=== PATIENT | male | born 1955 | race African-American/Black ===

== ENCOUNTER 2018-02-05 08:58 | Outpatient (CLI) | payer OTHER ==
[2018-02-05] MEDS ORDERED: Iopamidol 370 76% 100 ML VIAL ONE (12:11)
--- NOTE | 2018-02-05 13:07 | CT ---
PRE AND POSTCONTRAST ENHANCED CT IMAGES ABDOMEN AND PELVIS: HISTORY: History of prostate cancer with a history of prostatectomy. Patient with a possible renal lesion. FINDINGS: Pre- and postcontrast-enhanced CT images of the abdomen and pelvis were obtained. The lung bases are unremarkable. No evidence of free intraperitoneal air is seen. The liver demonstrates hepatic steatosis. The spleen is unremarkable. The gallbladder and pancreas are unremarkable. Adrenal glands unremarkable. There is a cortical cyst diameter measuring approxim ately 13 mm in the upper pole of the right kidney. There is a larger renal cyst in the mid pole of the left kidney measuring 5.6 x 6.3 x 6.3 cm. This a ppears to be a Bosniak type I cyst. A tiny cortical cyst is also seen in the upper pole of the left kidney, diameter measuring approximately 16 mm, also a simple cyst on CT. No evidence of paraaortic lymphadenopathy seen. The prostate has been surgically removed. No evidence of pelvic lymphadenopathy seen. No obvious osseous lesion is seen. Multilevel intervertebral disk degenerative changes seen in the lumbar spine with vacuum disk changes seen in the T12-L1, L1-2, L2-3, L3-4, L4-5 intervertebral disk levels. IMPRESSION: Bilateral renal cysts. POS: KERRIE
--- NOTE | 2018-02-05 14:21 | NM ---
BONE SCAN: HISTORY: Malignant neoplasm of prostate. DOSE: 30 mCi of Technetium 99m MDP. FINDINGS: Anterior and posterior whole body delayed images obtained. Images demonstrate no significant evidence of areas of scintigraphic uptake to suggest metastatic dis ease. No other bony lesions seen. IMPRESSION: No evidence of metastatic disease seen. Bone scan is unremarkable. POS: EARL
== END 2018-02-05 08:59 | disposition home or self-care (01) ==
LOC: CT 08:58
PROVIDERS: ATTEND Urology
DX: C61 Malignant neoplasm of prostate (principal); K76.9 Liver disease, unspecified; R39.198 Other difficulties with micturition; E11.9 Type 2 diabetes mellitus without complications; N28.1 Cyst of kidney, acquired
CPT/HCPCS: 74178; 78306; 80053; 83036; A9503

== ENCOUNTER 2018-02-19 12:16 | Outpatient (CLI) | payer OTHER ==
[2018-02-19 14:09] LABS: Hemoglobin 13.7 g/dL (14.0-18.0); Mean Corpuscular Hemoglobin 33.1 pg (27.0-31.0); Mean Corpuscular Volume 94.5 fl (80.0-94.0); Platelet Count 242 thou/uL (130-400); RBC Distribution Width 10.6 % (11.5-14.5); Red Blood Cell (RBC) Count 4.13 mill/uL (4.70-6.10); White Blood Cell (WBC) Count 3.9 thou/uL (4.8-10.8)
[2018-02-19 14:17] LABS: PTT 32.4 SEC (22.9-36.1); Prothrombin Time 13.5 SEC (12.0-14.7)
[2018-02-19 14:45] LABS: Anion Gap 11 mmol/L (10-20); BUN (Urea Nitrogen) 16 mg/dL (8.4-25.7); Calc. Creatinine Clearance 0 mL/min (70-130); Calcium 10.1 mg/dL (7.8-10.44); Carbon Dioxide 23 mmol/L (23-31); Chloride 108 mmol/L (98-107); Estimated GFR-MDRD 86; Glucose 96 mg/dL (80-115); Sodium 138 mmol/L (136-145)
== END 2018-02-19 12:17 | disposition home or self-care (01) ==
LOC: LABBT 12:16
PROVIDERS: ATTEND Urology
DX: Z01.818 Encounter for other preprocedural examination (principal); N32.0 Bladder-neck obstruction
CPT/HCPCS: 80048; 85027; 85610; 85730; 93005; 93010

== ENCOUNTER 2018-02-23 06:45 | Day surgery (SDC) | payer OTHER ==
[2018-02-19 12:44] VITALS: BMI 28.8
[2018-02-23] MEDS ORDERED: Levofloxacin 500 mg/D5W 100 ml Premix Bag ONE (07:20)
[2018-02-23] MEDS ORDERED: Fentanyl 100 MCG/2 ML VIAL ONE (07:31)
[2018-02-23] MEDS ORDERED: Iothalamate Meglumine 60% 50 ML VIAL FS ONE (07:37)
[2018-02-23] MEDS ORDERED: Ketorolac Tromethamine 30 MG/ML VIAL ONE (08:35)
[2018-02-23] MEDS ORDERED: Oxybutynin 5 MG TAB ONE (08:40)
[2018-02-23] MEDS ORDERED: Phenazopyridine HCl 97.5 MG TABLET ONE (08:41)
--- NOTE | 2018-02-23 09:27 | RAD ---
RETROGRADE PYELOGRAM: A single film from a retrograde study is presented. This shows a catheter which appears to be in the bladder. No contrast was injected. There is what appear to be postop prostatectomy changes. IMPRESSION: No contrast seen injected on the single film presented as a retrograde pyelogram. POS: EARL
--- NOTE | 2018-02-23 10:06 | OP ---
PREOPERATIVE DIAGNOSES: 1. A 62-year-old male status post radical prostatectomy on 03/[address] oCrtez, pathologic T3bN0, Elwood score 4+3, tertiary of 5, status post neoadjuvant radiation therapy. 2. Slow urinary stream secondary to tight bladder neck contracture, pinhole opening on local cystoscopy. POSTOPERATIVE DIAGNOSES: 1. A 62-year-old male status post radical prostatectomy on 03/[address] Cortez, pathologic T3bN0, Elwood score 4+3, tertiary of 5, status post neoadjuvant radiation therapy. 2. Slow urinary stream secondary to tight bladder neck contracture, pinhole opening on local cystoscopy. PROCEDURES: Cystoscopy, transurethral resection of bladder neck contracture, 20 Iranian Mansfield-tip Franks catheter placement over guidewire. SURGEON: Lakeshia Vargas D.O. ANESTHESIA: LMA. COMPLICATIONS: None apparent. SPECIMEN: TUR bladder neck contracture. INTRAOPERATIVE FINDINGS: 1. Subtle earlly bulbar urethral stricture, nonobstructing, not warranting treatment. 2. Very tight bladder neck contracture, dense in nature caliber just enough to accommodate a 0.35 sensor wire, bladder grossly unremarkable. 3. Postoperative changes consistent with urethral vesicle anastomosis with some redundant mucosa. SPECIMEN: TUR bladder neck contracture. DRAINS: A 20-Iranian Councill-tip Franks catheter placement over guidewire. INDICATIONS FOR THE PROCEDURE AND HISTORY: Mr. Hernandez is a pleasant 62-year- old -[place] male, referred to me for continuity of care. The patient was previously followed by Dr. Cortez, underwent radical open prostatectomy, bilateral pelvic lymph node dissection by Dr. Cortez on 03/2017. Final pathology consistent with T3bN0 Elwood score 4+3, tertiary score of 5. The patient presented to my office complaining of slow urinary caliber. I did repeat a staging CT bone scan negative for metastatic disease. The patient underwent adjuvant radiation therapy back in 11/2017. Due to slow urinary caliber, he underwent local cystoscopy demonstrating high degree of bladder neck contracture presents today for exam under anesthesia. Risks and complications of the procedure was reviewed with him in detail including, but not limited to, bleeding, pain, infection, injury to adjacent organs, bladder, urethral injury, sepsis, high likelihood of recurrence of bladder neck contracture was reviewed with patient and in detail and desired to proceed without reservation. DESCRIPTION OF THE PROCEDURE: After an informed consent is signed, the patient is taken to the operating room, placed in a dorsal lithotomy position with the genital area prepped and draped in the usual surgical sterile fashion. A 21- Iranian cystoscope was initially utilized to stage. Upon entering the bulbar urethra, there is subtle bulbar stricture; however, these are wide caliber not warranting treatment. The scope was easily able to be maneuvered to the level of the bladder neck which demonstrated very tight bladder neck contracture. The opening to the bladder neck was somewhat subtle given its small size. I was able to negotiate a 0.35 sensor wire, the opening of the bladder neck was just enough to accommodate a 0.35 sensor wire which I passed into the level of the bladder confirmed on fluoroscopy. A 5 Iranian open-ended catheter was negotiated and even with the 5 Iranian catheter, it was very tight and snugged to pass into the level of the bladder. We were able to negotiate the 5-Iranian open-ended catheter to the level of the bladder and the wire was then switched to a 0.35 Super Stiff wire. A 10 Iranian dual-lumen access sheath was attempted to be passed to passively dilate the bladder neck contracture, however, due to dense nature, I was unable to pass this even with the Super Stiff wire. Therefore, I passed a wire through the rigid 17-Iranian cystoscope. With the wire placed through the cystoscope, I gently passed scope with a guidewire assist into the level of the bladder. It required some manipulation as it was very dense in nature; however, I was able to pass the cystoscope to the level of the bladder under direct visualization. We then passed a 21-Iranian cystoscope which we were able to pass much easier. Then, I did transition to a 26-Iranian resectoscope with a visual obturator. The meatus had to be dilated to 30 Iranian to accommodate the 26-Iranian resectoscope. I subsequently passed to the level of the bladder under direct visualization. Using a prostate gyrus bipolar loop, we performed transurethral resection of bladder neck contracture. The scar tissue was very dense in nature. We resected just enough to release the tight bladder neck contracture and I was able to negotiate the 26-Iranian resectoscope easily back and forth. Minimal cautery was utilized as it can exacerbate recurrent bladder neck contracture accelerated. No active oozing was appreciated. The bladder itself demonstrated no significant trabeculation, bladder stones, or tumors. The UO's were identified well from the bladder neck anastomosis. There was some redundant mucosa at the level of the anastomosis consistent with prior surgery. At this time, I replaced a 0.35 Super Stiff wire to the level of the bladder through the resectoscope and a 20 Iranian Councill-tip catheter was able to be passed without difficulty. He tolerated the procedure well. He is discharged with Jermyn, Cipro, and Colace p.r.n. He will follow up with me on next Friday for catheter removal voiding trial. Given the dense nature of his bladder neck contracture, restaging cystoscopy would be prudent in 3-6 months interval. AGUILAR
[2018-02-23] MEDS ORDERED: Lidocaine 1% PF 5 ML VIAL ONE (14:01)
[2018-02-23] MEDS ORDERED: Dexamethasone 20 MG/5 ML VIAL ONE (14:01)
[2018-02-23] MEDS ORDERED: Ondansetron HCl/PF 4 MG/2 ML Vial ONE (14:01)
[2018-02-23] MEDS ORDERED: PROPOFOL 200 MG/20 ML VIAL ONE (14:01)
== END 2018-02-23 09:58 | disposition home or self-care (01) ==
LOC: SDC 06:45
PROVIDERS: ATTEND Urology
PROC: 0T7D8ZZ Dilation of Urethra, Via Natural or Artificial Opening Endoscopic (ICD-10-PCS; principal; 2018-02-23)
PROC: 0TBC8ZZ Excision of Bladder Neck, Via Natural or Artificial Opening Endoscopic (ICD-10-PCS; principal; 2018-02-23)
DX: N32.0 Bladder-neck obstruction (principal); N35.9 Urethral stricture, unspecified; N52.9 Male erectile dysfunction, unspecified; E11.40 Type 2 diabetes mellitus with diabetic neuropathy, unspecified; M19.90 Unspecified osteoarthritis, unspecified site; I10 Essential (primary) hypertension; E53.8 Deficiency of other specified B group vitamins; Z85.46 Personal history of malignant neoplasm of prostate; Z92.3 Personal history of irradiation; Z79.82 Long term (current) use of aspirin; Z79.84 Long term (current) use of oral hypoglycemic drugs; Z79.899 Other long term (current) drug therapy
CPT/HCPCS: 74420; 88305; 96374; C1758; C1769; J1100; J1885; J1956; J2001; J2405; J2704; J3010; Q9961

== ENCOUNTER 2018-06-03 07:14 | Outpatient (CLI) | payer OTHER ==
[2018-06-03] MEDS ORDERED: Gadobenate Dimeglumine 529 MG/1 ML (20ML VIAL) ONE (08:14)
== END 2018-06-03 07:15 | disposition home or self-care (01) ==
LOC: BICMRI 07:14
PROVIDERS: ATTEND Surgery
DX: M47.26 Other spondylosis with radiculopathy, lumbar region (principal); M54.5 Low back pain; M51.16 Intervertebral disc disorders with radiculopathy, lumbar region; M99.83 Other biomechanical lesions of lumbar region
CPT/HCPCS: 72120; 72158; A9579

== ENCOUNTER 2018-09-01 08:39 | Day surgery (SDC) | payer MEDICARE ==
[2018-08-25 10:18] VITALS: BMI 29.5
[2018-09-01] MEDS ORDERED: CEFAZOLIN 2 GM/50 ML BAG ONE (10:00)
[2018-09-01] MEDS ORDERED: Sodium Chloride 0.9% 10 ML ONE (10:13)
[2018-09-01] MEDS ORDERED: Bacitracin Zinc Ointment 30 gm TUBE ONE (10:13)
[2018-09-01] MEDS ORDERED: Thrombin 5000 UNITS/5 ML VIAL ONE (10:13)
[2018-09-01] MEDS ORDERED: Fentanyl 100 MCG/2 ML VIAL ONE ×5 (11:25→16:17)
[2018-09-01] MEDS ORDERED: Meperidine HCl/PF 25 MG/ML VIAL SLOW IVP PRN (13:48)
[2018-09-01] MEDS ORDERED: Morphine Sulfate 2 MG/ML SYRINGE SLOW IVP PRN (13:48)
[2018-09-01] MEDS ORDERED: HYDROmorphone 2 MG/ML VIAL SLOW IVP PRN (13:48)
[2018-09-01] MEDS ORDERED: Promethazine HCl 25 MG/ML VIAL IM PRN (13:48)
[2018-09-01] MEDS ORDERED: Ondansetron HCl/PF 4 MG/2 ML Vial IVP PRN (13:48)
[2018-09-01] MEDS ORDERED: Promethazine HCl 25 MG/ML VIAL SLOW IVP PRN (13:48)
[2018-09-01] MEDS ORDERED: PACU-Morphine 4MG/ML VIAL SLOW IVP PRN (13:48)
[2018-09-01] MEDS ORDERED: hydrALAZINE 20 MG/ML VIAL ONE (14:06)
[2018-09-01] MEDS ORDERED: Mag-Al 1200 mg/1200 mg/30 ML UDCUP PO PRN (14:33)
[2018-09-01] MEDS ORDERED: Morphine 2 MG/ML SYRINGE SLOW IVP PRN (14:33)
[2018-09-01] MEDS ORDERED: Bisacodyl 10 MG SUPP PR PRN (14:33)
[2018-09-01] MEDS ORDERED: tiZANidine HCl 4 MG TAB PO PRN (14:33)
[2018-09-01] MEDS ORDERED: traMADol HCl 50 MG TAB PO PRN (14:33)
[2018-09-01] MEDS ORDERED: Milk Of Magnesia 30 ML UDCUP PO PRN (14:33)
[2018-09-01] MEDS ORDERED: Fleet Enema 133 ML BOT PR PRN (14:33)
[2018-09-01] MEDS ORDERED: Acetaminophen 325 MG TAB PO PRN (14:33)
[2018-09-01] MEDS ORDERED: CEFAZOLIN/Water 2 GM/20 ML SYRINGE SLOW IVP SCH (14:45)
[2018-09-01] MEDS: Gabapentin 300 MG CAP PO SCH ×2 (17:11→20:07)
[2018-09-01] MEDS: Sodium Chloride 0.9% 1,000 ML IV SCH (17:13)
[2018-09-01] MEDS: HYDROcodone/Acetaminophen 7.5/325 mg Tablet PO PRN (18:14)
[2018-09-01] MEDS: CEFAZOLIN 2 GM/50 ML-DEXTROSE 2 GM in Premix Bag 1 BAG IVPB SCH (18:15)
[2018-09-01] MEDS ORDERED: Morphine 4 MG/ML VIAL SLOW IVP PRN (19:57)
[2018-09-01] MEDS: Lisinopril 10 MG TAB PO SCH (20:07)
[2018-09-02] MEDS: CEFAZOLIN 2 GM/50 ML-DEXTROSE 2 GM in Premix Bag 1 BAG IVPB SCH (02:06)
[2018-09-02] MEDS: HYDROcodone/Acetaminophen 7.5/325 mg Tablet PO PRN (04:30)
[2018-09-02] MEDS: Sodium Chloride 0.9% 1,000 ML IV SCH ×2 (04:38→07:45)
[2018-09-02 08:16] VITALS: BP 109/71
[2018-09-02] MEDS: Gabapentin 300 MG CAP PO SCH (08:16)
[2018-09-02] MEDS: Lisinopril 10 MG TAB PO SCH (08:16)
[2018-09-02 08:39] VITALS: TEMP 98.2
--- NOTE | 2018-09-02 09:49 | PRG ---
DATE OF SERVICE: 09/02/2018 Mr. Hernandez is postoperative day 1 from right L4-L5 hemilaminotomy, foraminotomy, and diskectomy and trans-facet approach to the right L4-L5 segment for decompression of the exiting right L4 root and lateral diskectomy. He is doing well with resolution in his leg pain and improvement even in his dorsiflexion strength. He has met criteria for dismissal. We will arrange for dismissal. We went over both intra and postoperative issues. I am pleased with his outcome at this point. Job ID: [id number]
--- NOTE | 2018-09-02 12:36 | OP ---
DATE OF PROCEDURE: 09/01/2018 OPERATING ROOM: OR 11. BAND SAW OPERATOR CAKE CUTTING: Charles Read PA-C. PREPROCEDURE DIAGNOSES: Right L4 and right L5 radiculopathy with right L4 foraminal stenosis with lateral disk extrusion and osteophyte encroachment with right L4-L5 paracentral disk extrusion and compression traversing right L5 nerve root. POSTPROCEDURE DIAGNOSES: Right L4 and right L5 radiculopathy with right L4 foraminal stenosis with lateral disk extrusion and osteophyte encroachment with right L4-L5 paracentral disk extrusion and compression traversing right L5 nerve root. PROCEDURES PERFORMED: 1. Right L4-L5 hemilaminotomy, foraminotomy with diskectomy. 2. Transfacet approach right L4-L5 for complete decompression of the exiting right L4 nerve root with lateral diskectomy. 3. Use of operative microscope for microdissection. DESCRIPTION OF PROCEDURE: After informed consent was obtained from the patient, the patient was brought to OR 11. Proper patient pause and identification were carried out. He was placed under excellent general endotracheal anesthesia and positioned prone on the OR table. All appropriate points were padded. We identified the midline L4-L5 segment. This region was sterilely cleansed, prepared, and draped. Proper patient pause and identification were carried out. The wound was then opened with a combination of sharp, monopolar, and blunt dissection. The right L4-L5 segment was exposed. Localization film confirmed our area of interest. We then also turned our attention to exposure of the facet complex on the right side at L4-L5 that would facilitate transfacet approach for decompression of the exiting right L4 nerve root and lateral diskectomy. We then performed a right L4-L5 hemilaminotomy, foraminotomy, and identified paracentral disk material that was compressing the traversing right L5 nerve root. This was removed and we achieved excellent decompression of the right L5 nerve root. We then turned our attention to the transfacet approach and transfacet approach was performed and lateral diskectomy was performed to decompress the exiting right L4 nerve root. There was also osteophyte buildup in the foramina as well and this was removed as well. By the conclusion, we had excellent decompression of the exiting right L4 nerve root throughout its course. Copious irrigation occurred throughout as did maximizing hemostasis. The wound was then closed in anatomic layers following sprinkling of vancomycin powder. The patient then emerged from anesthesia. Job ID: [id number]
== END 2018-09-02 10:50 | disposition home or self-care (01) ==
LOC: SDC 08:39 → SURG A 16:46 → SDC 09-02 10:50
PROVIDERS: ATTEND Surgery
PROC: 0SB20ZZ Excision of Lumbar Vertebral Disc, Open Approach (ICD-10-PCS; principal; 2018-09-01)
DX: M51.16 Intervertebral disc disorders with radiculopathy, lumbar region (principal); M48.061 Spinal stenosis, lumbar region without neurogenic claudication; I10 Essential (primary) hypertension; E11.9 Type 2 diabetes mellitus without complications; C61 Malignant neoplasm of prostate; Z79.82 Long term (current) use of aspirin; Z79.84 Long term (current) use of oral hypoglycemic drugs; Z79.899 Other long term (current) drug therapy
CPT/HCPCS: 76001; J0360; J2270; J3010; J3370; J3490

== ENCOUNTER 2019-02-19 11:56 | Outpatient (CLI) | payer MEDICARE ==
[~2019-02-19 11:56] MED LIST: Iopamidol 370 76% 100 ML VIAL ONE
--- NOTE | 2019-02-19 14:42 | ULT ---
CAROTID ULTRASOUND: 02/19/19 HISTORY: CVA. COMPARISON: None. TECHNIQUE: Agutam scale, color flow, Doppler imaging with spectral waveform analysis performed in the carotid and vertebral arteries. FINDINGS: RIGHT CAROTID: No significant atherosclerotic disease. Peak systolic velocity of the common carotid artery is 72.1 c m/s. Peak systolic velocity of the internal carotid artery is 60.3 cm/s. Systolic ICA to CCA ratio is 0.84. LEFT CAROTID: No significant atherosclerotic disease. Peak systolic velocity of the common carotid artery is 74.5 c m/s. Peak systolic velocity of the internal carotid artery is 49.1 cm/s. Systolic ICA to CCA ratio is 0.66. Antegrade flow in both vertebral arteries. IMPRESSION: No sonographic evidence of hemodynamically significant stenosis. POS: OFF
--- NOTE | 2019-02-19 16:04 | CT ---
CT BRAIN WITH AND WITHOUT IV CONTRAST: 02/19/19 HISTORY: CVA, old hemiparesis, prostate cancer, right arm and hand pain and numbness. COMPARISON: None. FINDINGS: There is encephalomalacia changes in the right frontal lobe consistent with an old infarction. No divine dence of acute infarction, hemorrhage, mass, midline shift, or abnormal extra-axial fluid collections are seen. The ventricular size is normal and the basilar cisterns patent. No abnormal postcontrast enhancement is seen. The bony calvarium is intact. The visualized paranasal sinuses and mastoid air c ells are well aerated. IMPRESSION: 1. No CT evidence of acute intracranial process or mass/metastatic disease. 2. 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 POS: TPC
== END 2019-02-19 11:57 | disposition home or self-care (01) ==
LOC: BICULT 11:56
PROVIDERS: ATTEND Family Medicine
DX: I69.359 Hemiplegia and hemiparesis following cerebral infarction affecting unspecified side (principal); G45.1 Carotid artery syndrome (hemispheric); Z86.73 Personal history of transient ischemic attack (TIA), and cerebral infarction without residual deficits
CPT/HCPCS: 70470; 82565; 93880; Q9967

== ENCOUNTER 2019-08-06 09:22 | Outpatient (CLI) | payer MEDICARE ==
--- NOTE | 2019-08-06 13:35 | NM ---
NUCLEAR MEDICINE WHOLE BODY BONE SCAN: HISTORY: Prostate cancer. Back surgery August 2018. TECHNIQUE: The patient was administered 32 mCi of technetium 99m MDP intravenously. FINDINGS: There is uptake in both shoulders and wrists due to degenerative change. Interval uptake in the left maxilla and mandible may be due to periodontal disease. Uptake in the posterior elements of the right aspect of L5, appears to conform to the pedicle. Uptake in the posterior left elements of L4 also appears to conform to the pedicle. Findings may be postoperative. However, malignancy cannot be excluded. There is a similar though less significant foc us of radiotracer localization along the posterior left elements at L3. IMPRESSION: 1. Uptake in the left maxilla and mandible which may represent periodontal disease. Dedicated imaging is recommended. 2. Uptake in the L3, L4 and L5 pedicles as described above. Findings may be postoperative. Further ev aluation with pre and post contrast lumbar spine MRI is recommended. CODE T Transcribed Date/Time: 08/06/2019 1:38 PM
== END 2019-08-06 09:23 | disposition home or self-care (01) ==
LOC: NM 09:22
PROVIDERS: ATTEND Internal Medicine Hematology & Oncology
DX: C61 Malignant neoplasm of prostate (principal)
CPT/HCPCS: 78306; A9503

== ENCOUNTER 2019-08-11 13:54 | Outpatient (CLI) | payer MEDICARE ==
[~2019-08-11 13:54] MED LIST changes: -Iopamidol 370 76% 100 ML VIAL ONE; +Magnevist 469MG/ML 20 ML VIAL ONE
--- NOTE | 2019-08-12 09:06 | MRI ---
MRI PELVIS WITH AND WITHOUT CONTRAST: Date: 08/11/19 HISTORY: C61 malignant neoplasm of prostate. Evaluate for recurrence. History of prostate surgery. COMPARISON: None. FINDINGS: Prior prostatectomy with scarring and susceptibility in the pelvis. There are some areas of fat necro sis. No abnormal focal area of diffusion restriction. No abnormal arterial enhancing lesion to sugges t recurrence. No pelvic adenopathy. No evidence of osseous metastatic disease. There is a high grade disc extrusion of L4-5 abutting multiple nerve roots. Spiculated appearance of the bladder. Mild hyperenhancement of the prostatic urethra, likely prior TU RP changes. IMPRESSION: 1. No evidence for local recurrence. 2. If there is no history of prior TURP, direct visualization of the prostatic urethra recommended a s there is some mucosal irregularity as well as mild hyperenhancement. POS: TPC
== END 2019-08-11 13:55 | disposition home or self-care (01) ==
LOC: TBSIIMAG 13:54
PROVIDERS: ATTEND Internal Medicine Hematology & Oncology
DX: C61 Malignant neoplasm of prostate (principal)
CPT/HCPCS: 72197; A9579

== ENCOUNTER 2019-08-12 16:45 | Inpatient (IN) | payer MEDICARE ==
[2019-08-12 17:14] LABS: #Lymphocytes 1.4 thou/uL (1.20-3.40); #Monocytes 0.9 thou/uL (0.11-0.59); #Neutrophils 3.9 thou/uL (1.40-6.50); %Basophils 0.1 % (0.0-1.0); %Eosinophils 0.2 % (0.0-10.0); %Monocytes 14.8 % (0.0-10.0); %Neutrophils 62.9 % (42.0-75.0); Hemoglobin 12.7 g/dL (14.0-18.0); Mean Corpuscular HGB CONC 35.3 g/dL (32.0-36.0); Mean Corpuscular Hemoglobin 32.6 pg (27.0-31.0); Mean Corpuscular Volume 92.4 fL (78.0-98.0); Mean Platelet Volume 6.5 fL (7.4-10.4); Platelet Count 278 thou/uL (130-400); RBC Distribution Width 10.9 % (11.5-14.5); Red Blood Cell (RBC) Count 3.88 mill/uL (4.70-6.10); White Blood Cell (WBC) Count 6.2 thou/uL (4.8-10.8)
[2019-08-12] MEDS ORDERED: Acetaminophen 500 MG TAB ONE ×2 (17:26→23:38)
[2019-08-12] MEDS ORDERED: cefTRIAXone\\ROCEPHIN 2 GM VIAL ONE (17:26)
[2019-08-12 17:41] LABS: ALT (SGPT) 54 U/L (8-55); AST (SGOT) 44 U/L (5-34); Albumin 4.3 g/dL (3.4-4.8); Alkaline Phosphatase 57 U/L (40-110); Anion Gap 14 mmol/L (10-20); BUN (Urea Nitrogen) 15 mg/dL (8.4-25.7); Bilirubin, Total 1.6 mg/dL (0.2-1.2); Calc. Creatinine Clearance 0 mL/min (70-130); Calcium 9.7 mg/dL (7.8-10.44); Carbon Dioxide 22 mmol/L (23-31); Chloride 105 mmol/L (98-107); Estimated GFR-MDRD 46; Globulin 3.6 g/dL (2.4-3.5); Glucose 134 mg/dL (80-115); Potassium 3.9 mmol/L (3.5-5.1); Protein, Total 7.9 g/dL (5.8-8.1); Sodium 137 mmol/L (136-145)
--- NOTE | 2019-08-12 17:47 | RAD ---
RADIOGRAPH CHEST 1 VIEW: DATE: 08/12/2019 HISTORY: 63-year-old male with fever FINDINGS: There are no airspace densities, pulmonary edema, pneumothorax, or cardiomegaly. The lateral costophr enic angles are sharp. IMPRESSION: No acute cardiopulmonary findings.
[2019-08-12 17:48] LABS: PTT 31.1 SEC (22.9-36.1); Prothrombin Time 13.5 SEC (12.0-14.7)
[2019-08-12 17:58] LABS: Bilirubin Negative (Negative); Blood, Urine 2+ (Negative); Clarity Extra Turbid (Clear); Glucose, Urine (Dipstick) Normal (Negative); Leukocyte 500 Leu/uL (Negative); Nitrite Negative (Negative); Protein, Urine (Dipstick) 100 mg/dL (Neg-Trace); Squamous Epithelial 0-3 HPF (0-3); Urobilinogen Normal mg/dL (Less than 2); WBC/HPF Greater than 50 HPF (0-3)
[2019-08-12 17:59] LABS: Bacteria/HPF 1+ HPF (None Seen)
[2019-08-12 18:00] LABS: Yeast-Budding None Seen HPF (None Seen)
[2019-08-12] MEDS ORDERED: Vancomycin HCl 1 GM in Premix Bag 1 BAG IVPB SCH (21:00)
[2019-08-12] MEDS ORDERED: Ondansetron ODT 4 MG TAB PO PRN (22:34)
[2019-08-12] MEDS ORDERED: hydrALAZINE 20 MG/ML VIAL SLOW IVP PRN (22:34)
[2019-08-12] MEDS ORDERED: Ondansetron PF 4 MG/2 ML Vial IVP PRN (22:34)
[2019-08-12] MEDS ORDERED: traMADol HCl 50 MG TAB PO PRN (22:34)
[2019-08-13] MEDS: Sodium Chloride 0.9% 1,000 ML IV SCH ×3 (00:57→17:11)
[2019-08-13 01:23] VITALS: BMI 30.5
--- NOTE | 2019-08-13 02:41 | HP ---
PRIMARY CARE PROVIDER: Dr. Nagi Siddiqui. CHIEF COMPLAINT: Fever and burning with urination. HISTORY OF PRESENT ILLNESS: This is a 63-year-old male, who presents to [facility] after being sent to the emergency room by his primary oncologist, Dr. Miller, who has been following the patient for prostate carcinoma. Patient not receiving any chemotherapy or specific treatment, complaining of burning with urination at the end of his void with associated fever, generalized weakness, and general malaise. Patient states he noted symptoms approximately a week prior to this evaluation with persistent fever, sweating, and weakness. Patient also reported urinary incontinence with associated left-sided flank pain. Patient denied any blood in his urine, change to his bowel habits, recent exposure history, travel, or family members with similar symptoms. Patient denies recent treatment with antibiotic therapy or instrumentation. Initial evaluation in the emergency room revealed urinalysis concerning for infectious process and meeting sepsis criteria. Patient received IV Rocephin and vancomycin in addition to intravenous normal saline x3 L per sepsis protocol. Patient also received 1000 mg of Tylenol. PAST MEDICAL HISTORY: 1. Prostate adenocarcinoma, status post radical prostatectomy with bilateral pelvic lymph node dissection. 2. Hypertension. 3. Peripheral neuropathy. 4. Diabetes mellitus, type 2. 5. Vitamin D and B12 deficiency. 6. History of hemorrhoids. 7. Osteoarthritis. 8. Impotence. PAST SURGICAL HISTORY: 1. Status post right shoulder reconstruction in 1998. 2. Status post colonoscopy with polypectomy. 3. Status post right radical prostatectomy. 4. Status post lumbar hemilaminotomy, right L4 on L5 with diskectomy. CURRENT MEDICATIONS: 1. Enteric-coated aspirin 81 mg p.o. daily. 2. Gabapentin 300 mg p.o. t.i.d. 3. Lisinopril 10 mg p.o. b.i.d. 4. Zanaflex 4 mg p.o. daily p.r.n. 5. Tramadol 50 mg p.o. b.i.d. p.r.n. ALLERGIES: NO KNOWN DRUG ALLERGIES. FAMILY HISTORY: Positive for hypertension and diabetes mellitus. SOCIAL HISTORY: and accompanied by his in the emergency room. No current alcohol, tobacco, or illicit drug use. REVIEW OF SYSTEMS: CONSTITUTIONAL: Negative for weight loss or gain, ability to conduct usual activities. SKIN: Negative for rash, itching. EYES: Negative for double vision, pain. ENT/MOUTH: Negative for nose bleeding, neck stiffness, pain, tenderness. CARDIOVASCULAR: Negative for palpitations, dyspnea on exertion, orthopnea. RESPIRATORY: Negative for shortness of breath, wheezing, cough, hemoptysis, fever or night sweats. GASTROINTESTINAL: Negative for poor appetite, abdominal pain, heartburn, nausea, vomiting, constipation, or diarrhea. GENITOURINARY: Negative for urgency, frequency, dysuria, nocturia. MUSCULOSKELETAL: Negative for pain, swelling. NEUROLOGIC/PSYCHIATRIC: Negative for anxiety, depression. ALLERGY/IMMUNOLOGIC: Negative for skin rash, bleeding tendency. Otherwise, negative, except as stated per HPI. PHYSICAL EXAMINATION: VITAL SIGNS: On admission, blood pressure 128/89, pulse 101, respiratory rate 18, temperature 102.6 degrees Fahrenheit, and O2 saturation 97% on room air. GENERAL APPEARANCE: This is a 63-year-old male, alert and oriented x3, ill appearing, responds to questions, in no acute distress. HEENT: Pupils are equal, round, reactive to light and accommodation. Extraocular muscles are intact. No scleral icterus. No conjunctival injection. Nares patent. OP is clear. Oral mucosa dry. NECK: Supple. No cervical adenopathy. No thyromegaly. No carotid bruits. No JVD appreciated. Cervical spine with full active and passive range of motion. No meningeal signs noted. CHEST: Lungs are clear to auscultation bilaterally. CARDIOVASCULAR EXAM: S1, S2 with tachycardia. No murmur, rub, or gallop appreciated. ABDOMEN: Rounded, soft with mild tenderness to palpation in the suprapubic region. Bowel sounds are positive in all 4 quadrants. No palpable mass. No rebound or guarding. EXTREMITIES: Warm and dry with fair turgor. No clubbing, cyanosis, or asymmetric edema appreciated. Pulses palpable distally at the dorsalis pedis, posterior tibial, and popliteal arteries bilaterally. Capillary refill less than 2 seconds. NEUROLOGIC: Cranial nerves 2 through 12 are grossly intact. No focal or lateralizing signs appreciated. PERTINENT LABORATORY AND X-RAY FINDINGS: Sodium 137, potassium 3.9, chloride 105, CO2 of 22, BUN 15, creatinine 1.79, estimated GFR 46, glucose 134, lactic acid level 0.9, calcium 9.7, total bilirubin 1.6, AST 44, ALT of 54, and albumin 4.3. CBC showed a white blood cell count of 6.2, hemoglobin 13, hematocrit 36, and platelet count 278 with normal differential. Urinalysis dated 08/12/2019, showed positive protein, blood, and leukocyte esterase with greater than 50 to [id number] wbc's per high-power field. 1+ bacteria noted. Portable chest x-ray dated 08/12/2019, showed no acute cardiopulmonary process. ASSESSMENT/PLAN: 1. Sepsis secondarily to urinary tract infection. Patient will be admitted to the medical floor. We will continue Rocephin 2 g IV q.24 hours with additional vancomycin 1 g IV q.12 hours. Await final blood and urine culture results. Continue intravenous normal saline at 100 mL/h. 2. Acute kidney injury on chronic kidney disease, stage 2. Avoid nephrotoxic agents and limit contrast exposure. Continue IV fluids as outlined previously. Repeat creatinine in the a.m. 3. Prostate carcinoma. We will continue general supportive management. Pain control as clinically indicated. Outpatient followup with Medical Oncology Service. 4. Hypertension. Resume home antihypertensive regimen once renal function stabilizes. Hold lisinopril x24 hours. 5. Prophylaxis. SCDs while in bed. Pepcid 20 mg p.o. b.i.d. CODE STATUS: Full. Surrogate medical decision maker is the patient's spouse. Job ID: [id number]
[2019-08-13 06:22] LABS: Anion Gap 10 mmol/L (10-20); BUN (Urea Nitrogen) 14 mg/dL (8.4-25.7); Calc. Creatinine Clearance 67 mL/min (70-130); Calcium 8.6 mg/dL (7.8-10.44); Carbon Dioxide 23 mmol/L (23-31); Chloride 110 mmol/L (98-107); Estimated GFR-MDRD 59; Glucose 150 mg/dL (80-115); Potassium 3.9 mmol/L (3.5-5.1); Sodium 139 mmol/L (136-145)
[2019-08-13 06:25] LABS: Band 25 % (5-11); Hemoglobin 10.9 g/dL (14.0-18.0); Lymphocytes 25 % (21-51); MDiff Complete? YES; Mean Corpuscular HGB CONC 34.5 g/dL (32.0-36.0); Mean Platelet Volume 6.7 fL (7.4-10.4); Monocytes 6 % (0-10); Neutrophil 44 % (42-75); Platelet Count 248 thou/uL (130-400); Red Blood Cell (RBC) Count 3.41 mill/uL (4.70-6.10); White Blood Cell (WBC) Count 5.4 thou/uL (4.8-10.8)
[2019-08-13] MEDS: Aspirin 81 mg Enteric Coated Tablet PO SCH (08:22)
[2019-08-13] MEDS: Gabapentin 300 MG CAP PO SCH ×3 (08:22→20:06)
[2019-08-13] MEDS: Famotidine 20 MG TAB PO SCH (08:22)
[2019-08-13] MEDS: Acetaminophen 500 MG TAB PO PRN ×2 (08:29→15:27)
[2019-08-13] MEDS ORDERED: Gentamicin Sulfate 80 MG in Premix Bag 1 BAG IVPB SCH (08:30)
[2019-08-13] MEDS ORDERED: Prevnar 13-Val Conj/PF 0.5 ML SYRINGE IM ONE (09:00)
[2019-08-13] MEDS ORDERED: cefTRIAXone\\ROCEPHIN 1 GM in Sodium Chloride 0.9% 100 ML IVPB SCH (15:00)
[2019-08-13] MEDS ORDERED: Vancomycin 1.5 GRAM/300 ML BAG 1.5 GM in Premix Bag 1 BAG IVPB SCH (15:00)
--- NOTE | 2019-08-13 15:20 | PDOC.HOSPP ---
- Subjective Encounter Date: 08/13/19 Encounter Time: 15:18 Subjective: Mr. Hernandez was seen today in follow-up of UTI with sepsis. He says he feels better. No complaints. - Objective Vital Signs & Weight: Vital Signs (12 hours) Temp Pulse Resp BP BP Pulse Ox 08/13/19 11:26 98 F 85 17 118/74 97 08/13/19 09:43 100 F H 08/13/19 08:29 100.4 F H 08/13/19 08:00 99 08/13/19 07:11 102.4 F H 93 17 129/72 99 08/13/19 04:14 99.6 F 87 16 155/93 H 98 Weight Weight 207 lb Result Diagrams: 08/13/19 05:35 08/13/19 05:35 Hospitalist ROS - Medication Medications: Active Medications Generic Name Dose Route Start Last Admin Trade Name Freq PRN Reason Stop Dose Admin Acetaminophen 1,000 mg 08/12/19 22:34 08/13/19 08:29 Tylenol PO 1,000 mg Q6H PRN Administration Mild Pain (1-3) Aspirin 81 mg 08/13/19 09:00 08/13/19 08:22 Ecotrin PO 81 mg DAILY ALEXANDER Administration Famotidine 20 mg 08/13/19 09:00 08/13/19 08:22 Pepcid PO 20 mg 0900 ALEXANDER Administration Gabapentin 300 mg 08/13/19 09:00 08/13/19 08:22 Neurontin PO 300 mg TID ALEXANDER Administration Sodium Chloride 1,000 mls @ 100 mls/hr 08/12/19 22:34 08/13/19 08:22 Normal Saline 0.9% IV 1,000 mls .Q10H ALEXANDER Administration Sodium Chloride 10 ml 08/13/19 09:00 08/13/19 09:40 Flush - Normal Saline IVF Not Given Q12HR ALEXANDER - Exam Eye: PERRL, anicteric sclera Heart: RRR, no murmur, no gallops, no rubs, normal peripheral pulses Respiratory: CTAB, no wheezes, no rales, no ronchi, normal chest expansion, no tachypnea Gastrointestinal: soft, non-tender, non-distended, normal bowel sounds, no palpable masses, no hepatomegaly, no splenomegaly Extremities: no cyanosis, no clubbing, no edema Hosp A/P (1) UTI (urinary tract infection) Status: Acute (2) Sepsis Code(s): A41.9 - SEPSIS, UNSPECIFIED ORGANISM Status: Acute (3) Prostate cancer Code(s): C61 - MALIGNANT NEOPLASM OF PROSTATE Status: Chronic (4) Hypertension Code(s): I10 - ESSENTIAL (PRIMARY) HYPERTENSION Status: Chronic (5) Chronic kidney disease, stage 2 (mild) Code(s): N18.2 - CHRONIC KIDNEY DISEASE, STAGE 2 (MILD) Status: Chronic - Plan * UTI with sepsis- he continued to have high fever this morning- will give a one time dose of Gentamicin * Continue Rocephin and Vancomycin * Await culture results * HTN- blood pressure is stable * CKD stage 2- stable
[2019-08-13] MEDS: cefTRIAXone\\ROCEPHIN 2 GM in Sodium Chloride 0.9% 100 ML IVPB SCH (18:06)
[2019-08-14] MEDS: Acetaminophen 500 MG TAB PO PRN (00:59)
[2019-08-14 07:48] LABS: Anion Gap 11 mmol/L (10-20); BUN (Urea Nitrogen) 11 mg/dL (8.4-25.7); Band 8 % (5-11); Calc. Creatinine Clearance 78 mL/min (70-130); Calcium 8.6 mg/dL (7.8-10.44); Carbon Dioxide 22 mmol/L (23-31); Chloride 111 mmol/L (98-107); Eosinophils 1 % (0-10); Estimated GFR-MDRD 70; Glucose 139 mg/dL (80-115); Hemoglobin 10.3 g/dL (14.0-18.0); Lymphocytes 34 % (21-51); MDiff Complete? YES; Mean Corpuscular HGB CONC 34.5 g/dL (32.0-36.0); Mean Corpuscular Hemoglobin 32.1 pg (27.0-31.0); Mean Corpuscular Volume 93.1 fL (78.0-98.0); Mean Platelet Volume 6.7 fL (7.4-10.4); Monocytes 11 % (0-10); Neutrophil 46 % (42-75); Platelet Count 235 thou/uL (130-400); Potassium 3.9 mmol/L (3.5-5.1); RBC Distribution Width 10.9 % (11.5-14.5); Sodium 140 mmol/L (136-145); White Blood Cell (WBC) Count 3.9 thou/uL (4.8-10.8)
[2019-08-14] MEDS: Aspirin 81 mg Enteric Coated Tablet PO SCH (08:14)
[2019-08-14] MEDS: Sodium Chloride 0.9% 1,000 ML IV SCH ×2 (08:14→16:40)
[2019-08-14] MEDS: Gabapentin 300 MG CAP PO SCH ×3 (08:15→20:09)
[2019-08-14] MEDS: Famotidine 20 MG TAB PO SCH (08:15)
[2019-08-14 14:55] LABS: Vancomycin, Trough 5.2 ug/mL
--- NOTE | 2019-08-14 15:49 | PDOC.HOSPP ---
- Subjective Encounter Date: 08/14/19 Encounter Time: 15:50 Subjective: F/u: UTI Patient states he feels fine, no dysuria, abdominal pain, nausea or vomiting. Had dysuria prior to admission - Objective Vital Signs & Weight: Vital Signs (12 hours) Temp Pulse Resp BP Pulse Ox 08/14/19 07:46 98.3 F 69 18 136/80 97 08/14/19 04:00 98.5 F 62 18 126/81 96 Weight Weight 207 lb I&O: 08/13/19 08/14/19 08/15/19 06:59 06:59 06:59 Intake Total 2620 Balance 2620 Result Diagrams: 08/14/19 06:50 08/14/19 06:50 Hospitalist ROS - Review of Systems Constitutional: denies: fever, chills - Medication Medications: Active Medications Generic Name Dose Route Start Last Admin Trade Name Freq PRN Reason Stop Dose Admin Acetaminophen 1,000 mg 08/12/19 22:34 08/14/19 00:59 Tylenol PO 1,000 mg Q6H PRN Administration Mild Pain (1-3) Aspirin 81 mg 08/13/19 09:00 08/14/19 08:14 Ecotrin PO 81 mg DAILY ALEXANDER Administration Famotidine 20 mg 08/13/19 09:00 08/14/19 08:15 Pepcid PO 20 mg 0900 ALEXANDER Administration Gabapentin 300 mg 08/13/19 09:00 08/14/19 08:15 Neurontin PO 300 mg TID ALEXANDER Administration Sodium Chloride 1,000 mls @ 100 mls/hr 08/12/19 22:34 08/14/19 08:14 Normal Saline 0.9% IV 1,000 mls .Q10H ALEXANDER Administration Ceftriaxone Sodium 2 gm/ 100 mls @ 200 mls/hr 08/13/19 17:00 08/13/19 18:06 Sodium Chloride IVPB 100 mls 1700 ALEXANDER Administration Sodium Chloride 10 ml 08/13/19 09:00 08/14/19 08:14 Flush - Normal Saline IVF Not Given Q12HR ALEXANDER - Exam General Appearance: NAD, awake alert Eye: PERRL, anicteric sclera ENT: normocephalic atraumatic, no oropharyngeal lesions Neck: supple, symmetric, no JVD, no thyromegaly Heart: RRR, no murmur, no gallops, no rubs Respiratory: CTAB, no wheezes, no rales, no ronchi Gastrointestinal: soft, non-tender, non-distended, normal bowel sounds Extremities: no cyanosis, no clubbing, no edema Skin: normal turgor, no lesions, no rashes Neurological: cranial nerve grossly intact, normal sensation to touch, no focal deficits Musculoskeletal: normal tone, normal strength, no muscle wasting Psychiatric: normal affect, normal behavior, A&O x 3 Hosp A/P - Plan This is 63 year old male who presented with E coli UTI/bacteremia #E coli UTI #Sepsis from E coli bacteremia - on IV ceftriaxone and vancomycin. Urine culture grew E coli. Will d/c vancomycin - repeat blood cultures since /2 positive for E coli. If repeat negative, could possibly d/c tomorrow - CT abdomen negative SCAR - resolved - creatinine back down to 1.25 Leukopenia - WBC slightly low, will trend tomorrow. Afebrile Anemia - Hb 10, will check B12, folate. Transaminitis - AST mildly elevated, will recheck today Hypertension - will resume lisinopril Neuropathy- continue gabapentin Dispo: pending repeat blood culture s Code status: full code
[2019-08-14] MEDS: cefTRIAXone\\ROCEPHIN 2 GM in Sodium Chloride 0.9% 100 ML IVPB SCH (16:54)
[2019-08-14] MEDS ORDERED: Lisinopril 10 MG TAB PO SCH (19:15)
[2019-08-15 06:37] LABS: Hemoglobin 10.2 g/dL (14.0-18.0); Mean Corpuscular HGB CONC 35.1 g/dL (32.0-36.0); Mean Corpuscular Hemoglobin 32.6 pg (27.0-31.0); Mean Platelet Volume 7.1 fL (7.4-10.4); Platelet Count 259 thou/uL (130-400); RBC Distribution Width 10.7 % (11.5-14.5); Red Blood Cell (RBC) Count 3.12 mill/uL (4.70-6.10); White Blood Cell (WBC) Count 4.8 thou/uL (4.8-10.8)
[2019-08-15 06:59] LABS: ALT (SGPT) 34 U/L (8-55); AST (SGOT) 21 U/L (5-34); Albumin 3.5 g/dL (3.4-4.8); Alkaline Phosphatase 50 U/L (40-110); Anion Gap 7 mmol/L (10-20); BUN (Urea Nitrogen) 14 mg/dL (8.4-25.7); Bilirubin, Total 0.7 mg/dL (0.2-1.2); Calc. Creatinine Clearance 68 mL/min (70-130); Calcium 8.9 mg/dL (7.8-10.44); Carbon Dioxide 26 mmol/L (23-31); Chloride 110 mmol/L (98-107); Estimated GFR-MDRD 60; Glucose 175 mg/dL (80-115); Potassium 3.8 mmol/L (3.5-5.1); Protein, Total 6.5 g/dL (5.8-8.1); Sodium 139 mmol/L (136-145)
[2019-08-15] MEDS: Aspirin 81 mg Enteric Coated Tablet PO SCH (08:25)
[2019-08-15] MEDS: Gabapentin 300 MG CAP PO SCH (08:26)
[2019-08-15] MEDS: Famotidine 20 MG TAB PO SCH (08:26)
[2019-08-15 08:27] VITALS: BP 133/79; TEMP 98.7
[2019-08-15] MEDS ORDERED: Lisinopril 10 MG TAB PO SCH (09:00)
--- NOTE | 2019-08-15 14:09 | DIS ---
DATE OF ADMISSION: 08/12/2019 DATE OF DISCHARGE: 08/15/2019 DISCHARGE DIAGNOSES: Sepsis secondary to Escherichia coli urinary tract infection and Escherichia coli bacteremia, normocytic anemia, acute kidney injury. SECONDARY DISCHARGE DIAGNOSES: Prostate adenocarcinoma, status post radical prostatectomy with bilateral pelvic lymph node dissection, hypertension, peripheral neuropathy, type 2 diabetes, history of hemorrhoids. BRIEF HISTORY OF PRESENT ILLNESS: This is a 63-year-old male who presented to the ER after being referred by his oncologist for prostate cancer. The patient had reported burning pain with urination, fever, weakness, and malaise. The patient does have a history of urinary incontinence. The patient had a radical prostatectomy done in the past and has also received radiation back in 2019, but was on no other treatment for his prostate cancer. HOSPITAL COURSE: Sepsis secondary to E coli UTI and E coli bacteremia: The patient had initially presented with a temperature of 101.7, with a normal white blood count but an elevated heart rate, greater than 90. He was started on IV fluids, and vancomycin and Rocephin empirically. Blood cultures on the grew 1/2 E coli. The urine culture was positive for E coli as well. On 08/14, vancomycin was discontinued. Repeat blood cultures on the are preliminarily negative. The patient will be switched to ciprofloxacin 500 mg q.12 for an additional 12 days to complete a 14-day course of antibiotics. The patient did have an MRI of his pelvis done on the , which showed no recurrence of his prostate cancer, and some mild hyperenhancement of the prostatic urethra and a spiculated appearance of the bladder. The patient states he has a followup appointment with his urologist. He is due for a cystoscopy in August. He was advised to consider having repeat urodynamic studies done since the patient reported that he had issues with poor flow in the past and does have some incontinence. At this time, the patient has no issues with dysuria, abdominal pain, or vomiting, and he feels well enough to be discharged. Acute kidney injury: The patient had presented with a creatinine of 1.79. His baseline is 1.18. The patient was given IV fluids and his creatinine improved to 1.25 on 08/14. His lisinopril was resumed at half the dose of 10 mg on the 08/14. The following day, his creatinine again increased to 1.44. Therefore, his lisinopril will be held on discharge and he will be switched to an alternative hypertensive agent. The patient should have a repeat BMP done with his PCP in a week. Leukopenia: The patient had a white blood cell count of 3.9 on 08/14, which resolved and increased to 4.8 on 08/15. Anemia: The patient noted to have a hemoglobin of 10.2 with an MCV of 93. Vitamin B12 was noted to be 217. Folate level was 9.20. The patient will be discharged with vitamin B12 at 2000 mcg daily. He should consider having a methylmalonic acid level checked as an outpatient. Transaminitis: The patient was noted to have a mild elevation of his AST of 44 on 08/12. This resolved, and was 21 on the day of discharge. The patient denies any abdominal pain. His bilirubin was also elevated at 1.6, which came down to 0.7 on the day of discharge. Hypertension: The patient will have his lisinopril discontinued due to elevated creatinine. He will be switched to amlodipine 5 mg daily. Blood pressure at the time of discharge is 133/79. Neuropathy: The patient will continue his gabapentin. Mild herniated disc; MRI shows disc extrusion with compression of nerve roots on L4-L5. He denied any worsening incontinence, saddle anasthesia or bowel incontinence. He will follow up as an outpatient with PCP. DISCHARGE PHYSICAL EXAMINATION: VITAL SIGNS: Temperature 98.7, heart rate 66, blood pressure 133/79, respiratory rate 18, O2 saturation 96% on room air. GENERAL: The patient is alert, awake, and oriented x3. He is obese. CVS: Regular rate and rhythm with no murmurs, rubs, or gallops. LUNGS: Clear to auscultation bilaterally. ABDOMEN: Positive bowel sounds. Soft, nontender, and nondistended. EXTREMITIES: No edema. PERTINENT LABORATORY DATA: CBC on 08/15: The patient has a hemoglobin and hematocrit of 10.2/29.0. The rest of the CBC is unremarkable. BMP on 08/15: Chloride is 110, creatinine is 1.44, glucose 175. Rest of BMP is unremarkable. LFTs: AST 24, ALT 34, alkaline phosphatase is 50. Vitamin B12 on 08/14 :is 217. Folate is 9.20. UA on 08/12: There is 100 of protein, 2+ blood, 500 leukocyte esterase, 4-6 rbc , greater than 50 white blood cells, and 1+ bacteria. PERTINENT IMAGING STUDIES: MRI of the pelvis on 08/11: Shows no evidence for local recurrence. There is high-grade disk extrusion of L4-L5, abutting multiple nerve roots. There is a spiculated appearance of the bladder. There is mild hyperenhancement of the prostatic urethra, likely prior TURP changes. There is some scarring and susceptibility in the pelvis. Chest x-ray on 08/12: Shows no acute disease. DISCHARGE CONDITION: Stable. DISCHARGE ACTIVITY: As tolerated. DIET: Diabetic diet. DISCHARGE MEDICATIONS: New medications: 1. Ciprofloxacin 500 mg p.o. q.12 hours for an additional 12 days. 2. Amlodipine 5 mg p.o. daily. 3. Vitamin B12 at 2000 mcg p.o. daily. Discontinued medications: Lisinopril 20 mg daily. All other home medications can be resumed. DISCHARGE INSTRUCTIONS: The patient is to follow up with his PCP in a week and have his creatinine rechecked and his blood pressure titrated since he was started on amlodipine. The patient should also follow up with his urologist after finishing his antibiotic course and consider repeat cystoscopy. Job ID: [id number] AGUILAR
== END 2019-08-15 15:32 | disposition home or self-care (01) | DRG 872 ==
LOC: ERS 16:45 → T4-A 20:12
PROVIDERS: ADMIT Internal Medicine; ATTEND Internal Medicine
DX: A41.51 Sepsis due to Escherichia coli [E. coli] (principal); N39.0 Urinary tract infection, site not specified; N17.9 Acute kidney failure, unspecified; E11.51 Type 2 diabetes mellitus with diabetic peripheral angiopathy without gangrene; R74.0 Nonspecific elevation of levels of transaminase and lactic acid dehydrogenase [LDH]; M51.26 Other intervertebral disc displacement, lumbar region; E11.22 Type 2 diabetes mellitus with diabetic chronic kidney disease; I12.9 Hypertensive chronic kidney disease with stage 1 through stage 4 chronic kidney disease, or unspecified chronic kidney disease; N18.2 Chronic kidney disease, stage 2 (mild); D63.1 Anemia in chronic kidney disease; Z85.46 Personal history of malignant neoplasm of prostate; Z79.899 Other long term (current) drug therapy; Z90.79 Acquired absence of other genital organ(s); Z28.21 Immunization not carried out because of patient refusal
CPT/HCPCS: 36415; 36416; 71045; 72197; 80048; 80053; 80202; 81003; 81015; 82607; 82746; 83605; 85007; 85025; 85027; 85610; 85730; 87040; 87077; 87086; 87149; 87186; 90471; 90670; A9579; G0009; J0696; J1580; J3370; J3490

== ENCOUNTER 2020-03-31 04:47 | Outpatient (CLI) | payer MEDICARE, OTHER ==
[2018-08-25 11:07] LABS: Hemoglobin 13.1 g/dL (14.0-18.0); Mean Corpuscular HGB CONC 34.3 g/dL (32.0-36.0); Mean Corpuscular Hemoglobin 31.9 pg (27.0-31.0); Platelet Count 230 thou/uL (130-400); RBC Distribution Width 10.7 % (11.5-14.5); Red Blood Cell (RBC) Count 4.09 mill/uL (4.70-6.10); White Blood Cell (WBC) Count 3.1 thou/uL (4.8-10.8)
[2018-08-25 11:13] LABS: PTT 33.2 SEC (22.9-36.1); Prothrombin Time 13.4 SEC (12.0-14.7)
[2018-08-25 11:30] LABS: Anion Gap 14 mmol/L (10-20); BUN (Urea Nitrogen) 17 mg/dL (8.4-25.7); Calc. Creatinine Clearance 0 mL/min (70-130); Calcium 10.2 mg/dL (7.8-10.44); Carbon Dioxide 23 mmol/L (23-31); Chloride 108 mmol/L (98-107); Estimated GFR-MDRD 69; Glucose 158 mg/dL (80-115); Potassium 4.9 mmol/L (3.5-5.1); Sodium 140 mmol/L (136-145)
--- NOTE | 2018-08-26 21:59 | EKG ---
Test Reason : Blood Pressure : / mmHG Vent. Rate : 055 BPM Atrial Rate : 055 BPM P-R Int : 206 ms QRS Dur : 118 ms QT Int : 428 ms P-R-T Axes : 066 -19 -22 degrees QTc Int : 409 ms Sinus bradycardia Left ventricular hypertrophy with QRS widening and repolarization abnormality Abnormal ECG When compared with ECG of 19-FEB-2018 13:43, No significant change was found Confirmed by Prem VILLA ([id number]) on 08/26/2018 9:59:06 PM Referred By: DILCIA Confirmed By:Prem VILLA
[2020-03-31 11:20] LABS: Hemoglobin 12.3 g/dL (14.0-18.0); Mean Corpuscular HGB CONC 34.9 g/dL (32.0-36.0); Mean Corpuscular Hemoglobin 32.5 pg (27.0-31.0); Mean Corpuscular Volume 93.2 fL (78.0-98.0); Mean Platelet Volume 8.8 fL (7.4-10.4); Platelet Count 239 thou/uL (130-400); RBC Distribution Width 11.3 % (11.5-14.5); Red Blood Cell (RBC) Count 3.79 mill/uL (4.70-6.10); White Blood Cell (WBC) Count 5.1 thou/uL (4.8-10.8)
[2020-03-31 11:31] LABS: Anion Gap 16 mmol/L (10-20); BUN (Urea Nitrogen) 15 mg/dL (8.4-25.7); Calc. Creatinine Clearance 0 mL/min (70-130); Calcium 10.7 mg/dL (7.8-10.44); Carbon Dioxide 16 mmol/L (23-31); Chloride 106 mmol/L (98-107); Estimated GFR-MDRD 60; Glucose 409 mg/dL (80-115); Potassium 4.4 mmol/L (3.5-5.1); Sodium 134 mmol/L (136-145)
[2020-04-01 12:33] LABS: SARS-CoV-2 MS2 Positive; SARS-CoV-2 N Gene Negative; SARS-CoV-2 S Gene Negative; SARS-CoV-2 orf1ab Negative
--- NOTE | 2020-04-01 19:44 | EKG ---
Test Reason : Blood Pressure : / mmHG Vent. Rate : 077 BPM Atrial Rate : 077 BPM P-R Int : 202 ms QRS Dur : 114 ms QT Int : 386 ms P-R-T Axes : 067 -23 012 degrees QTc Int : 436 ms Normal sinus rhythm Minimal voltage criteria for LVH, may be normal variant Nonspecific T wave abnormality Abnormal ECG When compared with ECG of 25-AUG-2018 10:42, Nonspecific T wave abnormality has replaced inverted T waves in Lateral leads Confirmed by JAZZY RACHEL, DR. Benitez ([id number]) on 04/01/2020 7:43:35 PM Referred By: RENÉ Confirmed By:DR. Emmanuel PURCELL MD
== END 2020-03-31 04:48 | disposition home or self-care (01) ==
LOC: LABBT 04:47
PROVIDERS: ATTEND Urology
DX: Z01.818 Encounter for other preprocedural examination (principal); Z11.59 Encounter for screening for other viral diseases; C61 Malignant neoplasm of prostate; N32.81 Overactive bladder; N47.1 Phimosis; N39.3 Stress incontinence (female) (male); Z90.79 Acquired absence of other genital organ(s); Z92.3 Personal history of irradiation
CPT/HCPCS: 80048 ×2; 85027 ×2; 85610; 85730; 93005 ×2; U0003; 36415; 84153; 87635; 93010

== ENCOUNTER 2020-04-04 07:53 | Day surgery (SDC) | payer MEDICARE ==
[2020-04-04] MEDS ORDERED: Fentanyl 100 MCG/2 ML VIAL ONE ×2 (09:21→10:42)
[2020-04-04] MEDS ORDERED: Bupivacaine 0.25% HCL 30 ML VIAL ONE (10:02)
[2020-04-04] MEDS ORDERED: Bacitracin Zinc Ointment 30 gm TUBE ONE (11:12)
--- NOTE | 2020-04-04 12:12 | OP ---
DATE OF PROCEDURE: 04/04/2020 PREOPERATIVE DIAGNOSIS: Phimosis. POSTOPERATIVE DIAGNOSIS: Phimosis. PROCEDURE PERFORMED: Circumcision. ANESTHESIA: General. COMPLICATIONS: None. SPECIMEN: Foreskin. ESTIMATED BLOOD LOSS: 20 mL. DESCRIPTION OF PROCEDURE: After informed consent, the patient was taken to the operating room, transferred to the table on his own power. Anesthesia was established. A time-out was performed showing correct patient, site, and procedure. Preoperative antibiotics were administered. He was prepped and draped in the supine position. A dorsal nerve block was performed using 10 mL of 0.25% Marcaine. A ring block was then performed using 20 mL of 0.25% Marcaine. I began by clamping and incising by phimotic ring dorsally. The glans was delivered and cleaned with Betadine. The distal and proximal collars were then marked and the intervening skin was excised with electrocautery. The distal collar was smaller in diameter than the proximal and so, three small incisions were made to allow for larger capacity diameter. I then obtained hemostasis with electrocautery and then closed the skin edges with interrupted 3-0 chromic sutures. The wound was then dressed with antibiotic ointment, Telfa, 4 x 4, and Coban. The patient was then awoken from anesthesia, transferred back to his hospital bed and taken to PACU in stable condition, where he will be discharged home upon recovery. All counts were correct at the end of the case. Job ID: [id number]
[2020-04-04] MEDS ORDERED: PROPOFOL 200 MG/20 ML VIAL ONE (13:21)
[2020-04-04] MEDS ORDERED: Lidocaine 1% PF 5 ML VIAL ONE (13:21)
[2020-04-04] MEDS ORDERED: Ondansetron PF 4 MG/2 ML Vial ONE (13:21)
== END 2020-04-04 13:53 | disposition home or self-care (01) ==
LOC: SDC 07:53
PROVIDERS: ATTEND Urology
PROC: 0VTTXZZ Resection of Prepuce, External Approach (ICD-10-PCS; principal; 2020-04-04)
DX: N47.1 Phimosis (principal); N47.7 Other inflammatory diseases of prepuce; N32.81 Overactive bladder; I10 Essential (primary) hypertension; N52.9 Male erectile dysfunction, unspecified; E11.40 Type 2 diabetes mellitus with diabetic neuropathy, unspecified; M19.90 Unspecified osteoarthritis, unspecified site; Z87.891 Personal history of nicotine dependence; Z79.82 Long term (current) use of aspirin; Z79.84 Long term (current) use of oral hypoglycemic drugs; Z79.899 Other long term (current) drug therapy; Z88.8 Allergy status to other drugs, medicaments and biological substances
CPT/HCPCS: 88304; J0690; J2405; J2704; J3010; S0020

== ENCOUNTER 2020-12-07 09:27 | Outpatient (CLI) | payer MEDICARE | END 2020-12-07 09:28 | disposition home or self-care (01) | LOC: LABBT 09:27 | PROVIDERS: ATTEND Urology | DX: Z01.818 Encounter for other preprocedural examination (principal); C61 Malignant neoplasm of prostate; N39.3 Stress incontinence (female) (male); N32.81 Overactive bladder; Z20.822 Contact with and (suspected) exposure to COVID-19; Z92.3 Personal history of irradiation | CPT/HCPCS: 80048; 81001; 85027; 87086; 93005; U0003; U0005; 87635; 93010 ==

== ENCOUNTER 2020-12-12 06:02 | Day surgery (SDC) | payer MEDICARE ==
[2020-12-08 14:37] VITALS: BMI 28.9
[2020-12-12] MEDS ORDERED: Fentanyl 100 MCG/2 ML VIAL ONE ×2 (06:32→09:25)
[2020-12-12] MEDS ORDERED: Bacitracin Zinc Ointment 30 gm TUBE ONE (07:10)
[2020-12-12] MEDS ORDERED: Bupivacaine 0.25% HCL 30 ML VIAL ONE (07:10)
[2020-12-12] MEDS ORDERED: Ondansetron PF 4 MG/2 ML Vial ONE (07:31)
[2020-12-12] MEDS ORDERED: Dexamethasone 20 MG/5 ML VIAL ONE (07:31)
[2020-12-12] MEDS ORDERED: Lidocaine 1% PF 5 ML VIAL ONE (07:31)
[2020-12-12] MEDS ORDERED: Rocuronium Bromide 10 MG/ML (10ML VIAL) ONE (07:31)
[2020-12-12] MEDS ORDERED: Glycopyrrolate 0.2 MG/ML 5 ML SYRINGE ONE (07:31)
[2020-12-12] MEDS ORDERED: PROPOFOL 200 MG/20 ML VIAL ONE (07:31)
[2020-12-12] MEDS ORDERED: Albuterol Sulfate HFA (OR ONLY) ONE ×2 (07:31→08:40)
[2020-12-12] MEDS ORDERED: Ketorolac Tromethamine 30 MG/ML VIAL ONE (09:13)
[2020-12-12] MEDS ORDERED: HYDROcodone/Acetaminophen 5/325 mg Tablet ONE (11:12)
== END 2020-12-12 14:20 | disposition home or self-care (01) ==
LOC: SDC 06:02
PROVIDERS: ATTEND Urology
PROC: 0TSD0ZZ Reposition Urethra, Open Approach (ICD-10-PCS; principal; 2020-12-12)
DX: N39.3 Stress incontinence (female) (male) (principal); N32.81 Overactive bladder; N52.9 Male erectile dysfunction, unspecified; I10 Essential (primary) hypertension; E11.40 Type 2 diabetes mellitus with diabetic neuropathy, unspecified; M19.90 Unspecified osteoarthritis, unspecified site; Z85.46 Personal history of malignant neoplasm of prostate; Z87.891 Personal history of nicotine dependence; Z92.3 Personal history of irradiation; Z79.82 Long term (current) use of aspirin; Z79.84 Long term (current) use of oral hypoglycemic drugs; Z79.899 Other long term (current) drug therapy; Z88.8 Allergy status to other drugs, medicaments and biological substances
CPT/HCPCS: C1771; J0690; J1100; J1885; J2405; J2704; J3010; S0020

== ENCOUNTER 2021-08-03 10:49 | Outpatient (CLI) | payer MEDICARE | END 2021-08-03 10:50 | disposition home or self-care (01) | LOC: BICRAD 10:49 | PROVIDERS: ATTEND Surgery | DX: M47.26 Other spondylosis with radiculopathy, lumbar region (principal); R29.898 Other symptoms and signs involving the musculoskeletal system; M48.07 Spinal stenosis, lumbosacral region | CPT/HCPCS: 72120; 72148 ==

== ENCOUNTER 2021-11-22 08:49 | Outpatient (CLI) | payer MEDICARE ==
[2021-11-22 23:51] LABS: SARS-CoV-2 PCR by NAA Not Detected (NotDetected)
== END 2021-11-22 08:50 | disposition home or self-care (01) ==
LOC: LABBT 08:49
PROVIDERS: ATTEND Internal Medicine Gastroenterology
DX: K63.5 Polyp of colon (principal); Z20.822 Contact with and (suspected) exposure to COVID-19
CPT/HCPCS: U0003; U0005

== ENCOUNTER 2021-11-27 07:20 | Day surgery (SDC) | payer MEDICARE ==
[2021-11-20 13:32] VITALS: BMI 30.5
[2021-11-27] MEDS ORDERED: Lidocaine 1% PF 5 ML VIAL ONE (09:03)
[2021-11-27] MEDS ORDERED: PROPOFOL 200 MG/20 ML VIAL ONE (09:03)
== END 2021-11-27 10:00 | disposition home or self-care (01) ==
LOC: SDC 07:20
PROVIDERS: ATTEND Internal Medicine Gastroenterology
PROC: 0DBK8ZX Excision of Ascending Colon, Via Natural or Artificial Opening Endoscopic, Diagnostic (ICD-10-PCS; principal; 2021-11-27)
PROC: 0DBL8ZX Excision of Transverse Colon, Via Natural or Artificial Opening Endoscopic, Diagnostic (ICD-10-PCS; 2021-11-27)
DX: Z12.11 Encounter for screening for malignant neoplasm of colon (principal); D12.2 Benign neoplasm of ascending colon; D12.3 Benign neoplasm of transverse colon; K57.30 Diverticulosis of large intestine without perforation or abscess without bleeding; K64.8 Other hemorrhoids; I10 Essential (primary) hypertension; G89.29 Other chronic pain; M54.9 Dorsalgia, unspecified; I73.9 Peripheral vascular disease, unspecified; G62.9 Polyneuropathy, unspecified; E78.5 Hyperlipidemia, unspecified; Z85.46 Personal history of malignant neoplasm of prostate; Z86.010 Personal history of colon polyps; Z79.82 Long term (current) use of aspirin; Z79.84 Long term (current) use of oral hypoglycemic drugs; Z79.899 Other long term (current) drug therapy
CPT/HCPCS: 88305; J2704

== ENCOUNTER 2023-05-08 13:08 | Outpatient (CLI) | payer MEDICARE ==
[2023-05-08 14:29] LABS: Hematocrit 39.4 % (38.8-50.0); Mean Corpuscular Hemoglobin 31.6 pg (27.0-33.0); Mean Corpuscular Volume 95.6 fl (81.2-95.1); Mean Platelet Volume 9.3 fl (7.4-10.4); Platelet Count 263 10x3/uL (150-450); RBC Distribution Width 11.4 % (11.5-14.5); Red Blood Cell (RBC) Count 4.12 10x6/uL (4.32-5.72); White Blood Cell (WBC) Count 4.5 10x3/uL (3.5-10.5)
[2023-05-08 14:51] LABS: PTT 24.9 sec (22.0-33.0); Prothrombin Time 10.6 sec (9.5-12.1)
[2023-05-08 15:01] LABS: Anion Gap 15 mmol/L (10-20); BUN (Urea Nitrogen) 16 mg/dL (8.4-25.7); Calc. Creatinine Clearance 0 mL/min (70-130); Calcium 9.9 mg/dL (7.8-10.44); Carbon Dioxide 22 mmol/L (23-31); Chloride 109 mmol/L (98-107); Estimated GFR 48; Glucose 163 mg/dL (80-115); Potassium 4.3 mmol/L (3.5-5.1); Sodium 142 mmol/L (136-145)
== END 2023-05-08 13:09 | disposition home or self-care (01) ==
LOC: LABBT 13:08
PROVIDERS: ATTEND Surgery
DX: Z01.818 Encounter for other preprocedural examination (principal); M51.26 Other intervertebral disc displacement, lumbar region; M48.062 Spinal stenosis, lumbar region with neurogenic claudication
CPT/HCPCS: 80048; 85027; 85610; 85730; 93005; 93010

== ENCOUNTER 2023-05-13 07:17 | Inpatient (IN) | payer OTHER ==
[2023-05-08 13:50] VITALS: BMI 28.9
[2023-05-13] MEDS ORDERED: Thrombin 5000 UNITS/5 ML VIAL ONE (08:57)
[2023-05-13] MEDS ORDERED: Vancomycin 1 GM VIAL ONE (08:57)
[2023-05-13] MEDS ORDERED: HYDROmorphone 0.5 MG/0.5 ML SYRINGE ONE ×3 (08:59→15:51)
[2023-05-13] MEDS ORDERED: Ketamine 50 MG/ML (10ML VIAL) ONE (08:59)
[2023-05-13] MEDS ORDERED: Fentanyl 250 MCG/5 ML VIAL ONE (08:59)
[2023-05-13] MEDS ORDERED: Sodium Chloride 0.9% 100 ML ONE (09:08)
[2023-05-13] MEDS ORDERED: CEFAZOLIN 2 GM VIAL ONE (09:08)
[2023-05-13] MEDS ORDERED: PROPOFOL 200 MG/20 ML VIAL ONE (09:21)
[2023-05-13] MEDS ORDERED: Lidocaine 1% PF 5 ML VIAL ONE (09:21)
[2023-05-13] MEDS ORDERED: PHENYLEPHRINE-NS 100 MCG/ML 10 ML SYRINGE ONE (09:21)
[2023-05-13] MEDS ORDERED: Glycopyrrolate 0.2 MG/ML 5 ML SYRINGE ONE (09:21)
[2023-05-13] MEDS ORDERED: Ondansetron PF 4 MG/2 ML Vial ONE (09:21)
[2023-05-13] MEDS ORDERED: Dexamethasone 20 MG/5 ML VIAL ONE (09:21)
[2023-05-13] MEDS ORDERED: NEOSTIGMINE 3 MG/3 ML SYR 3 MG/3 ML SYRINGE ONE (09:21)
[2023-05-13] MEDS ORDERED: Rocuronium Bromide 10 MG/ML (10ML VIAL) ONE (09:21)
[2023-05-13] MEDS ORDERED: Promethazine HCl 25 MG/ML VIAL IM PRN (13:10)
[2023-05-13] MEDS ORDERED: Ondansetron HCl/PF 4 MG/2 ML Vial IVP PRN (13:10)
[2023-05-13] MEDS ORDERED: HYDROmorphone 2 MG/ML VIAL SLOW IVP PRN (13:10)
[2023-05-13] MEDS ORDERED: Meperidine HCl/PF 25 MG/ML VIAL SLOW IVP PRN (13:10)
[2023-05-13] MEDS ORDERED: Morphine Sulfate 2 MG/ML SYRINGE SLOW IVP PRN (13:10)
[2023-05-13] MEDS ORDERED: Acetaminophen 325 MG TAB PO PRN (13:44)
[2023-05-13] MEDS ORDERED: Ondansetron PF 4 MG/2 ML Vial IVP PRN (13:44)
[2023-05-13] MEDS ORDERED: diphenhydrAMINE 25 MG CAP PO PRN (13:44)
[2023-05-13] MEDS ORDERED: hydrALAZINE 20 MG/ML VIAL SLOW IVP PRN (13:46)
[2023-05-13] MEDS ORDERED: Mineral Oil ENEMA PR PRN (13:46)
[2023-05-13] MEDS ORDERED: Polyethylene Glycol 3350 17 GM Packet PO PRN (13:46)
[2023-05-13] MEDS ORDERED: Bisacodyl 5 MG TAB PO PRN (13:46)
[2023-05-13] MEDS ORDERED: Diazepam 5 MG TAB PO PRN (13:46)
[2023-05-13] MEDS ORDERED: fentaNYL 50 mcg/mL 1 mL Vial ONE ×2 (14:31→16:38)
[2023-05-13] MEDS ORDERED: CEFAZOLIN 2 GM in Sodium Chloride 0.9% 100 ML IVPB SCH (17:00)
[2023-05-13] MEDS: Morphine 2 MG/ML VIAL SLOW IVP PRN ×3 (17:52→23:29)
[2023-05-13] MEDS: CEFAZOLIN 2 GM in Sodium Chloride 0.9% 100 ML IVPB SCH (21:06)
[2023-05-13] MEDS: Sodium Chloride 0.9% 1,000 ML IV SCH (21:07)
[2023-05-13] MEDS: Docusate 100 MG CAP PO SCH (21:10)
[2023-05-13] MEDS: HYDROcodone/Acetaminophen 10/325 mg Tablet PO PRN (22:05)
[2023-05-14] MEDS: Acetaminophen/Codeine 30-300mg Tablet PO PRN ×4 (03:32→20:24)
[2023-05-14] MEDS: Sodium Chloride 0.9% 1,000 ML IV SCH ×2 (03:34→17:40)
[2023-05-14] MEDS: CEFAZOLIN 2 GM in Sodium Chloride 0.9% 100 ML IVPB SCH ×3 (05:36→22:33)
[2023-05-14 05:59] LABS: #Monocytes 0.9 thou/uL (0.11-0.59); #Neutrophils 5.5 thou/uL (1.40-6.50); %Basophils 0.1 % (0.0-1.0); %Lymphocytes 14.9 % (21.0-51.0); %Monocytes 11.9 % (0.0-10.0); %Neutrophils 72.8 % (42.0-75.0); Hematocrit 33.6 % (42.0-52.0); Hemoglobin 11.3 g/dL (14.0-18.0); Mean Corpuscular HGB CONC 33.6 g/dL (32.0-36.0); Mean Corpuscular Hemoglobin 32.3 pg (27.0-31.0); Mean Platelet Volume 9.2 fL (7.4-10.4); Platelet Count 216 10x3/uL (130-400); RBC Distribution Width 11.2 % (11.5-14.5); White Blood Cell (WBC) Count 7.6 10x3/uL (4.8-10.8)
[2023-05-14 06:20] LABS: Anion Gap 5 mmol/L (10-20); BUN (Urea Nitrogen) 18 mg/dL (8.4-25.7); Calc. Creatinine Clearance 74 mL/min (70-130); Calcium 8.7 mg/dL (7.8-10.44); Carbon Dioxide 18 mmol/L (23-31); Chloride 111 mmol/L (98-107); Estimated GFR 67; Glucose 141 mg/dL (80-115); Potassium 4.1 mmol/L (3.5-5.1); Sodium 130 mmol/L (136-145)
[2023-05-14] MEDS: Docusate 100 MG CAP PO SCH ×2 (09:41→20:24)
[2023-05-14] MEDS: HYDROcodone/Acetaminophen 7.5/325 mg Tablet PO PRN (17:39)
[2023-05-14] MEDS: HYDROcodone/Acetaminophen 10/325 mg Tablet PO PRN (22:34)
[2023-05-15] MEDS: HYDROcodone/Acetaminophen 10/325 mg Tablet PO PRN ×3 (02:42→20:46)
[2023-05-15] MEDS: Sodium Chloride 0.9% 1,000 ML IV SCH ×2 (04:14→20:48)
[2023-05-15] MEDS: CEFAZOLIN 2 GM in Sodium Chloride 0.9% 100 ML IVPB SCH ×3 (05:30→22:50)
[2023-05-15] MEDS: HYDROcodone/Acetaminophen 7.5/325 mg Tablet PO PRN (06:37)
[2023-05-15] MEDS: Docusate 100 MG CAP PO SCH ×2 (09:27→20:46)
[2023-05-16] MEDS: HYDROcodone/Acetaminophen 10/325 mg Tablet PO PRN ×2 (02:16→06:31)
[2023-05-16] MEDS: CEFAZOLIN 2 GM in Sodium Chloride 0.9% 100 ML IVPB SCH (06:32)
[2023-05-16] MEDS: Sodium Chloride 0.9% 1,000 ML IV SCH (08:35)
[2023-05-16] MEDS: Docusate 100 MG CAP PO SCH (08:36)
[2023-05-16 08:53] VITALS: BP 134/81; TEMP 98.9
== END 2023-05-16 12:37 | disposition home or self-care (01) | DRG 455 ==
LOC: SDC 07:17 → SURG A 13:42 → OBSVTOIN 05-14 10:00
PROVIDERS: ADMIT Surgery; ATTEND Surgery
PROC: 0SG00AJ Fusion of Lumbar Vertebral Joint with Interbody Fusion Device, Posterior Approach, Anterior Column, Open Approach (ICD-10-PCS; principal; 2023-05-13)
PROC: 0SG0071 Fusion of Lumbar Vertebral Joint with Autologous Tissue Substitute, Posterior Approach, Posterior Column, Open Approach (ICD-10-PCS; 2023-05-13)
PROC: 0SB20ZZ Excision of Lumbar Vertebral Disc, Open Approach (ICD-10-PCS; 2023-05-13)
DX: M48.062 Spinal stenosis, lumbar region with neurogenic claudication (principal); M43.16 Spondylolisthesis, lumbar region; M51.16 Intervertebral disc disorders with radiculopathy, lumbar region
CPT/HCPCS: 36415; 80048; 85025; 86850; 86900; 86901; 93970; C1713; C1889; J1100; J1170; J2272; J2405; J2704; J3010; J3370; J3490; J7050

== ENCOUNTER 2023-09-19 08:20 | Outpatient (CLI) | payer OTHER | END 2023-09-19 08:21 | disposition home or self-care (01) | LOC: ULT 08:20 | PROVIDERS: ATTEND Psychiatry & Neurology Neurology | DX: R93.89 Abnormal findings on diagnostic imaging of other specified body structures (principal); E04.2 Nontoxic multinodular goiter | CPT/HCPCS: 76536 ==

== ENCOUNTER 2023-11-14 11:15 | Outpatient (CLI) | payer MEDICARE | END 2023-11-14 11:16 | disposition home or self-care (01) | LOC: MRI 11:15 | PROVIDERS: ATTEND Surgery | DX: M51.16 Intervertebral disc disorders with radiculopathy, lumbar region (principal); M51.15 Intervertebral disc disorders with radiculopathy, thoracolumbar region; M48.061 Spinal stenosis, lumbar region without neurogenic claudication; M48.05 Spinal stenosis, thoracolumbar region; M47.26 Other spondylosis with radiculopathy, lumbar region; M25.78 Osteophyte, vertebrae; N28.9 Disorder of kidney and ureter, unspecified; Z98.1 Arthrodesis status; Z98.890 Other specified postprocedural states | CPT/HCPCS: 72100; 72148 ==

== ENCOUNTER 2025-08-09 10:37 | Day surgery (SDC) | payer OTHER ==
[2025-08-09] MEDS ORDERED: Tropicamide 1% 15 ML BOTTLE ONE (11:12)
== END 2025-08-09 13:19 | disposition home or self-care (01) ==
LOC: SDC 10:37
PROVIDERS: ATTEND Ophthalmology
PROC: 085J3ZZ Destruction of Right Lens, Percutaneous Approach (ICD-10-PCS; principal; 2025-08-09)
DX: H26.491 Other secondary cataract, right eye (principal)